=== PATIENT | male | born 1975 | race Two or more races ===

== ENCOUNTER → 2020-12-10 14:26 | Outpatient (CLI) | payer OTHER, SELFPAY ==
[2020-12-10 15:53] LABS: Absolute Lymphocyte Count 2.18 X10^3/uL (0.83-4.51); Absolute Neutrophil Count 3.4 X10^3/uL (2.0-7.7); Basophil# 0.02 X10^3/uL; Basophil% 0.3 % (0-1); Eosinophil# 0.12 X10^3/uL; Eosinophils% 1.9 % (0-5); Hematocrit 45.3 % (40-54); Hemoglobin 14.8 g/dL (13.0-16.5); Lymphocyte # 2.18 X10^3/ul (4.0); Lymphocyte % 35.2 % (19-41); Mean Corp Hgb Conc 32.7 g/dL (32-36); Mean Corpuscular Hgb 27.1 pg (27.0-32.0); Mean Corpuscular Volume 82.8 fL (80-94); Mean Platelet Vol. 10.1 fl (6.2-12.0); Monocyte# 0.46 X10^3/uL; Monocyte% 7.4 % (0-10); NRBC Flagged by Analyzer 0 % (0-5); Neutrophil # 3.39 X10^3/uL (2.7-7.7); Neutrophil % 54.9 % (47-70); Platelet Count 291 K/mm3 (150-450); RBC Distribution Width SD 39.1 fl (35.1-43.9); Red Blood Count 5.47 M/mm3 (4.6-6.2); White Blood Count 6.2 K/mm3 (4.4-11.0)
[2020-12-10 16:20] LABS: Vitamin B12 549 pg/mL (211-911); Vitamin D,25 Hydroxy 16.4 ng/mL
[2020-12-10 16:31] LABS: Hemoglobin A1c 5.8 % (3.8-5.6)
[2020-12-10 17:11] LABS: ALB/GLOB Ratio 1.1 RATIO (0.9-2.4); AST(SGOT) 27 U/L (15-37); Alanine Aminotransfer ALT/SGPT 49 U/L (16-61); Albumin, Serum 4.1 g/dL (3.2-5.0); Alkaline Phosphatase 78 U/L (45-117); Anion Gap 6 (5-15); BUN 12 mg/dL (7-18); BUN/Creat Ratio 13.3 RATIO (10-20); Chloride 104 mmol/L (98-107); Cholesterol 157 mg/dL (200); EST Glomerular Filtration Rate 97 mL/min (>60); Est Glom Filt Rate - Afr Amer 118 mL/min (>60); Ferritin 80 ng/mL (26-388); Free T3 2.8 pg/mL (2.18-3.98); Globulin 3.8 g/dL (2.2-4.2); Glucose 80 mg/dL (74-106); High Density Lipoprotein 37 mg/dL; Iron 88 ug/dL (65-175); Iron Binding Capacity,Total 357 ug/dL (250-450); PSA,Total - Annual Screen 0.31 ng/mL (0.00-4.00); Potassium 4.1 mmol/L (3.5-5.1); Protein, Total 7.9 g/dL (6.4-8.2); Sodium Level 139 mmol/L (136-145); T4 Free Direct 1.35 ng/dL (0.76-1.46); Thyroid Stim Hormone (TSH) 3.43 uIU/mL (0.358-3.74); Triglycerides 111 mg/dL; Very Low Density Lipoprotein 22 mg/dL (5-40)
[2020-12-15 20:07] LABS: Testosterone, Free 10.46 ng/dL (5.00-21.00)
[2020-12-15 20:38] LABS: Testosterone, % Free 2.32 % (1.50-4.20); Testosterone, Total 451 ng/dL (264-916)
== END ==
DX: D50.9 Iron deficiency anemia, unspecified (principal); R06.09 Other forms of dyspnea; R07.9 Chest pain, unspecified
CPT/HCPCS: 36415; 80053; 80061; 82306; 82607; 82728; 83036; 83540; 83550; 84153; 84402; 84403; 84439; 84443; 84481; 85025; G0103

== ENCOUNTER → 2020-12-12 11:06 | Outpatient (CLI) | payer OTHER, SELFPAY ==
--- NOTE | 2020-12-12 13:10 | EKG12_ITS ---
Test Reason : SOB Blood Pressure : / mmHG Vent. Rate : 100 BPM Atrial Rate : 100 BPM P-R Int : 162 ms QRS Dur : 128 ms QT Int : 350 ms P-R-T Axes : 067 069 -07 degrees QTc Int : 451 ms Poor data quality, interpretation may be adversely affected Normal sinus rhythm Right bundle branch block T wave abnormality, consider inferior ischemia Abnormal ECG Confirmed by MARITZA OWENS, SOWMYA ([id number]), brands editor ERICA MOHAN ([id number]) on 12/18/2020 12:21:40 PM Referred By: TAVON AMEZCUA Confirmed By:SOWMYA SALAS MD
--- NOTE | 2020-12-12 13:12 | STRESSREP ---
Stress Test Report Exercise myocardial perfusion stress test. 45-year-old man with a history of shortness of breath. Medications Nexium. Stress protocol: Resting EKG demonstrates normal sinus rhythm with a rate of 76 bpm. The patient exercised according to the regular Ector protocol for a total duration of 11 minutes the maximum heart rate attained was 193 bpm which was 109% of max impacted heart rate with a maximum workload of 13.3 metabolic equivalents. Patient completed 2 minutes into stage IV of the Ector protocol. At rest there were no ST or T wave changes noted to suggest ischemia at peak exercise upsloping ST changes only were noted with no meet the criteria for ischemia. No clinical angina was noted the test was terminated due to dyspnea. At approximately 1 minute and 50 seconds into recovery patient developed a right bundle branch block. This appeared to persist throughout the recovery. No symptoms were noted. The peak blood pressure was 172/58 mmHg which was normal response to exercise. Myocardial perfusion protocol. 11.3 mCi of technetium 99m sestamibi was injected at rest. The patient exercised according to regular Ector protocol for total duration of 11 minutes. At peak exercise 34.2 mCi of technetium 99m sestamibi was injected stress images were obtained stress and rest images were reconstructed and compared in the short axis vertical long horizontal long axis. Gated images were also obtained Perfusion SPECT analysis: Review of the stress images demonstrate normal uptake of tracer noted in all areas of the myocardium the resting images similarly demonstrate normal uptake of tracer noted in all areas of the myocardium. No areas of reversibility are noted to suggest ischemia. Normal uptake is noted in all areas. Gated SPECT analysis: The gated ejection fraction is 79%. Conclusion: Normal exercise myocardial perfusion stress test with no evidence of ischemia at a high workload. No clinical angina noted. Right bundle branch block noted during recovery.
== END ==
DX: R06.09 Other forms of dyspnea (principal); R07.9 Chest pain, unspecified; D50.9 Iron deficiency anemia, unspecified
CPT/HCPCS: 78452; 93005; 93017; 93306; A9500; A4216

== ENCOUNTER → 2020-12-13 15:00 | Outpatient (CLI) | payer OTHER, SELFPAY ==
--- NOTE | 2020-12-13 15:04 | CT_ITS ---
STUDY: CTA CHEST REASON FOR EXAM: Male, 45 years old. SOB on exertion x 4-5 months, no prior surgery, diabetes, hypertension. Remote hx superficial phlebitis 2 years ago. RADIATION DOSAGE (If Supplied By Facility): CTDIvol = ( 11.19 ) mGy, DLP = ( 355.61 ) mGycm TECHNIQUE: The examination was performed with the intravenous administration of IV 100mL Isovue-370. Post-processing of the angiographic images was performed, with multiplanar reformation and 3D reconstruction. Individualized dose optimization techniques were used for this CT. COMPARISON: None. FINDINGS: Small bilateral benign-appearing axillary lymph nodes. Normal enhancement of the main pulmonary artery and right and left pulmonary arteries. Normal enhancement of the bilateral peripheral pulmonary arteries. There is no demonstrated pulmonary embolism. Normal thoracic aorta and visualized great vessels. There is no demonstrated aortic dissection. Mild degree of the coronary calcification. Normal mediastinum. Normal hilar regions. Normal visualized trachea and bronchi. The lungs are well expanded. Normal pulmonary parenchyma. Normal pleura. Normal chest wall structures. Normal osseous structures. Normal visualized upper abdomen. CT/CTA Chest W/WO Contrast IMPRESSION: Mild degree of coronary artery calcification. Electronically Signed: Arie Oakley MD at 15:51 EST , Service support ,
== END ==
PROVIDERS: Referring Provider Internal Medicine Cardiovascular Disease; Visit Provider Internal Medicine Cardiovascular Disease
DX: R00.0 Tachycardia, unspecified (principal); R06.00 Dyspnea, unspecified
CPT/HCPCS: 71275; Q9967

== ENCOUNTER 2020-12-27 08:36 | Day surgery (SDC) | payer OTHER, SELFPAY ==
[2020-12-26 12:25] VITALS: BMI 25.1
--- NOTE | 2020-12-27 06:00 | HP_ITS ---
ADDENDUM by Dr. Andrew Mckeon MD on 12/26/20 at 0908 Addendum entered and electronically signed by Andrew Mckeon MD 12/26/20 09:08: Patient continues to have chest discomfort despite his stress test. He did experience chest discomfort this morning when he was walking his dog. At this juncture I would therefore suggest that because of the coronary calcium noted on his CT we perform a cardiac catheterization. The risk benefits and alternatives have been explained to him he understands and agrees to proceed. Assessment & Plan Problems 1. Dyspnea R06.00 Plan - Dr. Andrew Mckeon MD He does appear to have persistent dyspnea the etiology of which is not entirely clear at this particular time. He underwent a stress test during which he performed very well for 11 minutes without any evidence of ischemia. During recovery however he was noted to have right bundle branch block, which was asymptomatic. He apparently had a similar EKG abnormality on his previous stress test though he had exercised for 13 minutes. The concern is the reduction in the exercise capacity and the right bundle branch block and it may be helpful to obtain a CT scan to exclude any occult pulmonary pathology and/or pulmonary embolism. I have discussed the above with him and he understands and agrees to proceed. Depending on the results of the above further recommendations will be made. Plan Detail Additional Comments - Dr. Andrew Mckeon MD This is a telehealth visit in lieu of in person visit due to nationwide COVID ? 19 emergency. Verbal consent was obtained from the patient prior to initiation of this visit. Live video connection/telephone call between my location and the patient?s location was used for this visit. Patients name and date of were confirmed verbally. I spent a total of 30 minutes of time during this real-time, interactive virtual clinical encounter, which was conducted using telephone/live video technology. Greater than 50% of the time was devoted to counseling and coordinating care including the review of records, pertinent lab data and studies, discussing diagnostic evaluation and work up, planned therapeutic interventions and future disposition of care. All questions from patient were answered. Follow Up prn 12/26/20 0909 <Electronically signed by Andrew Ocasio> Date _ Andrew Mckeon MD cc: ~* Signed HPI HPI History of Present Illness Details: Pleasant 45-year-old man with history of gastroesophageal reflux who presents with dyspnea on exertion. Patient was seen yesterday as well as today with a televideo conferencing visit. He has also had occasional chest discomfort. He has had no dizziness or diaphoresis no near syncope or syncope. He did undergo evaluation and did help with her bone marrow transplant on his brother a few years ago. His iron levels as well as his hemoglobin has since normalized. He continues to complain of this dyspnea on exertion and it resulted in a stress test where he exercised 11 minutes without any EKG changes. He did get short of breath necessitating discontinuation of the test. An echocardiogram performed demonstrated preserved left ventricular systolic function. He also had other blood work which revealed a normal hemoglobin and a total cholesterol 157, LDL of 98 and HDL of 37. TSH was noted to be normal. His physical exam was otherwise unremarkable. His EKG at baseline demonstrates normal sinus rhythm with an RSR prime in V1. Intake Vital Signs 12/13/20 BP 100/76 12/13/20 Respiration 16 12/13/20 Pulse 76 Intake Visit Reasons: tachy Allergies No Known Allergies Allergy (Unverified 12/13/20 08:52) Medications esomeprazole magnesium 40 mg capsule,delayed release 40 mg PO DAILY 12/13/20 [History Confirmed 12/13/20] Ejection fraction %: 60 to 64 [facility] Medical History GERD (gastroesophageal reflux disease) (Chronic) Social History (Updated 12/13/20 @ 09:[address] Andrew Mckeon MD) Smoking Status: Never smoker ROS Const Const: Negative for fatigue, weakness, headache(s), frequent falls, difficulty sleeping or excessive sweating Eyes Eyes: Negative for loss of peripheral vision, transient loss of vision, blurry vision, double vision or tunnel vision ENT ENT: Negative for headache(s), dizziness, Nosebleed/epistaxis or balance problems Cardio Chest Pain: No Palpitations: No Edema: None Muscle aches with walking: None Resp Respiratory: Positive for SOB with activity; negative for SOB at rest, SOB orthopnea\SOB lying down, Cough or paroxysmal nocturnal dyspnea GI GI: Negative nausea, vomiting, heartburn or black,tarry stools : Negative for hematuria Musc Musc: Negative for muscle aches/ myalgia, muscle weakness, joint pain or balance problems Skin Skin: Negative non-healing lesions, rash or unusual bruising Neuro Neuro: Negative for dizziness, lightheadedness, near syncope, syncope, orthostatic symptoms, frequent falls, headache(s), weakness, blurry vision, double vision or lack of coordination Malachi Hematologic/Lymphatic: Negative for easy bleeding or easy bruising Endo Endo: Negative for fatigue, excessive sweating or increased thirst/drinking Psych Psych: Negative for anxiety or depression Allergy Allergy/Immunology: Negative for hives, Negative for rash Cardiology Exam Const Appearance: cooperative, healthy appearing, no acute distress, well developed and well groomed Nutritional Appearance: average body habitus and well nourished Orientation: alert, awake and oriented x3 Head Head: normal to inspection, normocephalic and atraumatic Ears: hearing grossly normal bilaterally and external ears normal Nose: external nose normal, nares normal, nasal mucous membranes and turbinates normal, septum normal, no nasal discharge Face and Sinus: face symmetric Mouth: oral mucosae normal, tongue normal, oropharynx normal and moist mucous membranes Teeth and gingiva: dentition normal Throat: posterior oropharynx normal, tonsils normal and uvula midline Eyes General: appearance normal, both eyes and all related structures Eyelids: eyelids normal Conjunctivae: conjunctivae normal Pupils: PERRL, normal by confrontation and accommodation normal EOM: EOM intact bilaterally Neck Neck: normal visual inspection, trachea midline and no JVD JVD: +5 Carotids: normal carotid upstroke and bounding pulses Chest Chest inspection: normal inspection of the chest, symmetric chest movement and normal respiratory effort Auscultation: Bilateral: Clear to Auscultation Cardio Palpation: normal PMI Rate: regular rate Rhythm: regular rhythm Heart sounds: S1 normal, S2 normal and normal, physiologic split S2; negative rub, gallop or murmur GI GI: normal to inspection, soft, no hepatosplenomegaly and bowel sounds present Neuro General: alert, awake, oriented x3, gait normal, moves all extremities and no focal sensory deficit Skin Skin: no rashes or lesions noted Extremities Pulses: Normal: Right Femoral Pulse, Left Femoral Pulse, Right Dorsalis Pedis Pulse, Left Dorsalis Pedis Pulse, Right Posterior Tibial Pulse, Left Posterior Tibial Pulse, Right Radial Pulse, Left Radial Pulse Lower Extremity Edema: None: Bilateral Musculoskel Musculoskeletal: No joint tenderness Psych Psychological: normal affect Assessment & Plan Problems 1. Dyspnea R06.00 Plan He does appear to have persistent dyspnea the etiology of which is not entirely clear at this particular time. He underwent a stress test during which he performed very well for 11 minutes without any evidence of ischemia. During recovery however he was noted to have right bundle branch block, which was asymptomatic. He apparently had a similar EKG abnormality on his previous stress test though he had exercised for 13 minutes. The concern is the reduction in the exercise capacity and the right bundle branch block and it may be helpful to obtain a CT scan to exclude any occult pulmonary pathology and/or pulmonary embolism. I have discussed the above with him and he understands and agrees to proceed. Depending on the results of the above further recommendations will be made. Plan Detail Additional Comments This is a telehealth visit in lieu of in person visit due to nationwide COVID ? 19 emergency. Verbal consent was obtained from the patient prior to initiation of this visit. Live video connection/telephone call between my location and the patient?s location was used for this visit. Patients name and date of were confirmed verbally. I spent a total of 30 minutes of time during this real-time, interactive virtual clinical encounter, which was conducted using telephone/live video technology. Greater than 50% of the time was devoted to counseling and coordinating care including the review of records, pertinent lab data and studies, discussing diagnostic evaluation and work up, planned therapeutic interventions and future disposition of care. All questions from patient were answered. Follow Up prn Coding Level of Care Code Attention Associate Pastor Diagnoses Dyspnea R06.00 Time Spent (min) 30 Comment 74343 Coding Level of Care Code Attention Katherine Diagnoses Dyspnea R06.00 Time Spent (min) 30 Comment 23411 Supplemental Info Supplemental Information Labs LDL Cholesterol 98 mg/dL (0-130) 12/10/20 HDL Cholesterol 37 mg/dL (40-) L 12/10/20 Triglycerides 111 mg/dL (-199) 12/10/20 VLDL Cholesterol 22 mg/dL (5-40) 12/10/20 Diagnostics Stress Test Nuclear Medicine 12/12/20 Stress Test 12/12/20
--- NOTE | 2020-12-27 10:47 | PRO.PCM_ITS ---
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 Evaluated by nuclear stress test which showed preserved LV function with no evidence of myocardial ischemia. Subsequently had a CT chest which showed calcified LAD. On the electrocardiogram he had on recovery of the stress test right bundle branch block which was stable clinically. No good good Indication: Symptoms of shortness of breath and chest pain with CT chest showing mild calcification of proximal LAD Heart failure: LV function is preserved no clinical evidence of CHF Stress/imaging: Patient exercised according to standard Ector protocol walked for [address]?T abnormalities and normal nuclear stress test findings with preserved LV function CAD presentation: Symptoms of shortness of breath and chest pain Summary: Patient had nonobstructive CAD involving the mid LAD with minor calcification in the proximal LAD Procedure Details The risks, benefits, complications, treatment options, and expected outcomes were discussed with the patient. The patient and/or family concurred with the proposed plan, giving informed consent. Patient was brought to the field laboratory operator after IV hydration . Patient was further sedated with IV conscious sedation. Subject was prepped and draped in the usual manner. Using the modified Seldinger access technique, a 6 Wolof sheath was placed in the []. Standard diagnostic catheters were used. Exchanges were performed over J-wire. At the end of the procedures, all catheters and sheaths were removed and bleeding was stopped with closure device using TR band Findings: Left ventriculogram: Was not performed Moderate Sedation: No sedation, local anesthesia using lidocaine used to the right radial artery Hemodynamics: Dominance: RCA LVEDP : Not done Ejection Fraction : Normal by echocardiogram and nuclear stress test Coronary Anatomy: Left Main : Large vessel, normal angiographically, bifurcating into LAD and the left circumflex LAD : Proximal LAD has mild calcification, mid LAD after the first septal branch has 30% stenosis, nonobstructive CAD, rest of the LAD large vessel reaching all the way to the apex and normal angiographically, with abundant septal branches Diagonals : Ist diagonal normal angiographically Circumflex : Large vessel, OM1 is normal and the proximal, mid and distal left circumflex normal angiographically Major Obtuse Marginals : Normal angiographically Right Coronary Artery : Dominant large vessel, proximal RCA has 20% stenosis, bifurcating into posterolateral and RPDA Estimated Blood Loss: Minimal less than 5 mils Complications: None Disposition condition: Stable Conclusion and plan; Angiographic findings discussed and plan is medical therapy with statin and low- dose aspirin. Yudith Harrison MD,FACC,[facility] make up operator helper
== END 2020-12-27 11:25 | disposition home or self-care (01) ==
LOC: CLSP 08:37
PROVIDERS: Visit Provider Internal Medicine Interventional Cardiology
DX: I25.10 Atherosclerotic heart disease of native coronary artery without angina pectoris (principal); I45.10 Unspecified right bundle-branch block; K21.9 Gastro-esophageal reflux disease without esophagitis
CPT/HCPCS: 93454; J7040; Q9967; C1769; C1894

== ENCOUNTER 2021-11-26 10:49 | Outpatient (CLI) | payer OTHER, SELFPAY ==
--- NOTE | 2021-11-26 10:53 | MRI_ITS ---
STUDY: MRI BRAIN WITH AND WITHOUT CONTRAST (ATTENTION INTERNAL AUDITORY CANALS - I.A.C.''s) REASON FOR EXAM: Male, 46 years old. TINNITUS RT EAR TECHNIQUE: Standardized multiplanar fat and water weighted pulse sequences were obtained. 17ML IV DOTAREM was administered for the contrast portion of the examination. COMPARISON: None. FINDINGS: Normal bilateral temporal bones. Normal bilateral internal auditory canals. There is no demonstrated intracanalicular or cisternal vestibular schwannoma (acoustic neuroma). There is no enhancement of the bilateral VIIth or VIIIth cranial nerves. Normal bilateral cochlea, vestibules and semicircular canals. Normal size of the ventricles and extra-axial spaces for the patient''s age. Normal white matter tracts of the supratentorial brain. Normal bilateral basal ganglia. Normal thalami. Normal flow voids within the major intracranial circulation suggesting patency by spin echo criteria. Normal venous enhancement. There is no enhancing intra-axial or extra-axial abnormality. There is no extra-axial fluid accumulation. Normal sella turcica, pituitary gland, infundibular stalk, optic chiasm and hypothalamus. Normal tectal plate and pineal gland. MRI/Brain W/WO Contrast IMPRESSION: Unremarkable unenhanced and enhanced MRI of the bilateral internal auditory canals (I.A.C''s). Electronically Signed: Neena Christianson MD at 11:23 EST Tel , Service support ,
== END 2021-11-26 23:59 | disposition short-term general hospital (02) ==
LOC: MRI 10:50
PROVIDERS: Referring Provider Otolaryngology; Visit Provider Otolaryngology
DX: H93.11 Tinnitus, right ear (principal)
CPT/HCPCS: 70553; A9575

== ENCOUNTER 2021-11-26 12:35 | Outpatient (CLI) | payer OTHER, SELFPAY ==
[2021-11-26 14:25] LABS: Hematocrit 45.2 % (40-54); Hemoglobin 14.5 g/dL (13.0-16.5); Mean Corp Hgb Conc 32.1 g/dL (32-36); Mean Corpuscular Hgb 27.2 pg (27.0-32.0); Mean Corpuscular Volume 84.8 fL (80-94); Mean Platelet Vol. 10.1 fl (6.2-12.0); Platelet Count 265 K/mm3 (150-450); RBC Distribution Width CV 13.8 % (11.6-14.6); RBC Distribution Width SD 42.5 fl (35.1-43.9); Red Blood Count 5.33 M/mm3 (4.6-6.2); White Blood Count 6.4 K/mm3 (4.4-11.0)
[2021-11-26 15:00] LABS: ALB/GLOB Ratio 1.1 RATIO (0.9-2.4); AST(SGOT) 18 U/L (15-37); Alanine Aminotransfer ALT/SGPT 32 U/L (16-61); Alkaline Phosphatase 70 U/L (45-117); Anion Gap 6 (5-15); BUN 15 mg/dL (7-18); BUN/Creat Ratio 18.3 RATIO (10-20); Calcium,Total 9.7 mg/dL (8.5-10.1); Chloride 104 mmol/L (98-107); Creatinine, Serum 0.82 mg/dL (0.70-1.30); EST Glomerular Filtration Rate 108 mL/min (>60); Est Glom Filt Rate - Afr Amer 131 mL/min (>60); Globulin 3.5 g/dL (2.2-4.2); Glucose 84 mg/dL (74-106); Magnesium 2.3 mg/dL (1.6-2.6); Potassium 4.2 mmol/L (3.5-5.1); Protein, Total 7.5 g/dL (6.4-8.2); Sodium Level 140 mmol/L (136-145); T4 Total, Thyroxin 8.8 ug/dL (4.5-12.1)
[2021-11-26 15:01] LABS: T3 Total - Triiodothyronine 0.98 ng/mL (0.6-1.81)
[2021-11-26 15:12] LABS: Anion Gap 7 (5-15); BUN 15 mg/dL (7-18); BUN/Creat Ratio 17.8 RATIO (10-20); Calcium,Total 9.7 mg/dL (8.5-10.1); Chloride 106 mmol/L (98-107); Creatinine, Serum 0.84 mg/dL (0.70-1.30); EST Glomerular Filtration Rate 105 mL/min (>60); Est Glom Filt Rate - Afr Amer 127 mL/min (>60); Glucose 83 mg/dL (74-106); Potassium 4.3 mmol/L (3.5-5.1); Sodium Level 142 mmol/L (136-145); Thyroid Stim Hormone (TSH) 2.68 uIU/mL (0.358-3.74)
== END 2021-11-26 23:59 | disposition short-term general hospital (02) ==
LOC: LAB 12:37
PROVIDERS: Internal Medicine Cardiovascular Disease; Visit Provider Anesthesiology
DX: H93.11 Tinnitus, right ear (principal)
CPT/HCPCS: 36415; 80048; 80053; 83735; 84436; 84443; 84480; 85027

== ENCOUNTER 2021-11-29 06:45 | Day surgery (SDC) | payer OTHER, SELFPAY ==
--- NOTE | 2021-11-26 10:52 | EKG12_ITS ---
Test Reason : PREOP Blood Pressure : / mmHG Vent. Rate : 076 BPM Atrial Rate : 076 BPM P-R Int : 150 ms QRS Dur : 094 ms QT Int : 372 ms P-R-T Axes : 070 061 022 degrees QTc Int : 418 ms Normal sinus rhythm Normal ECG Confirmed by MARITZA OWENS, SOWMYA ([id number]), supervising film or videotape editor JOYCE KAPADIA ([id number]) on 11/29/2021 10:23:08 AM Referred By: Vladimir Hassan Confirmed By:SOWMYA SALAS MD
[2021-11-29 07:13] VITALS: BP 115/69; PULSE 71; RESP 16; TEMP 36.2; O2SAT 99; BMI 25.1
[2021-11-29] MEDS: Lactated Ringers 1,000 ML 15 ML IV (07:17)
--- NOTE | 2021-11-29 08:00 | SEP_PTH ---
PATIENT: DECLAN AMEZCUA LOC: [facility] U#:[id number] AGE/SX: 46/M ROOM: RE11/29/[address]: Dr. Vladimir Hassan MD : [id number] BED: DIS: 11/29/2021 SPEC #: [id number] RECD: 11/29/21 11:48 STATUS: LIANA REQ #: [id number] LETTY: 11/29/21 08:[address]: Vladimir Hassan DEPT: SURGICAL PATHOLOGY RECD BY: Priya Daniels ENTERED: 11/29/21 12:45 SP TYPE: SEPTUM OTHR DR: No Primary Care Phys Tissues: Nasal septum, NOS Procedures: Decalcification bone/plaque Surgery Specimen Level III HEADER OPERATION: Septoplasty PRE-OP DIAGNOSIS: Deviated nasal septum TISSUE SUBMITTED: Nasal septum contents MICROSCOPIC DIAGNOSIS Nasal septum contents: Fragments of bone and cartilage, clinically deviated nasal septum. SJ:ade 12/04/2021 MICROSCOPIC DESCRIPTION Slides are reviewed. GROSS DESCRIPTION Received in fixative is one container labeled with the patient's name and designated nasal septum contents. The specimen consists of multiple irregular fragments of bone and cartilage that in aggregate measure 4 x 3 x 0.3 cm. The entire specimen is submitted in two cassettes after decalcification. / SJ:ade 11/29/2021 TC:5 CPT: 05343, 35106
[2021-11-29] MEDS: Lidocaine 1% /Epi 1:100 (50ml) 50 ML VIAL (08:30)
[2021-11-29] MEDS: Lidocaine 4% 50 ML Bottle (08:30)
[2021-11-29] MEDS: Oxymetazoline 0.05% 1 SPRAY SPRAY.BTL 15 SPRAY (08:30)
[2021-11-29] MEDS: Bacitracin 500 UNITS/GM PACKET (08:59)
--- NOTE | 2021-11-29 09:02 | PCM.OPRPT ---
Problems Associated Problem List Diagnoses (1) Deviated nasal septum: Report of Operation Date of Procedure: 11/29/21 Pre-Operative Diagnosis: Deviated nasal septum Post-Operative Diagnosis: Same Surgery/Procedure Performed:: Septoplasty Description of Surgical Findings:: Noel is a 46-year-old male with persistent bothersome nasal obstruction failing response to appropriate medical therapy. Examination did show significant deviation of nasal septum particular obstructing the left side and the above procedures offered in hopes of alleviation of these complaints. The risks, alternatives, potential complications, and benefits were discussed at length and any questions answered to the patient and/or caregiver's satisfaction. Witnessed informed consent was obtained in the office, and the patient and/or caregiver was agreeable to proceed. Procedure went as follows: The patient was identified in the preoperative holding and brought to the operating room, was placed under general anesthesia and intubated. When appropriate anesthesia was obtained, pledgets soaked in a 50-50 mixture of oxymetazoline and 4% topical lidocaine were placed to decongest the nasal mucosa. The nasal septum was then injected beginning on the left side with 1% lidocaine with 100,000 epinephrine for a total of 5 mL. The pledgets were then removed and the left nasal cavity examined. There was noted to be significant nasal septal deviation to the left. Using a 15 blade scalpel, a hemitransfixion incision was then made on the left side and using the [place] elevator a subperichondrial/periosteal flap was elevated. The septum was then transected at the bony cartilaginous junction and a similar flap raised on the contralateral side. Using a Masoud forceps, the septum was then sharply transected superiorly and the deviated portions removed with a Feliciano forceps. Any inferior bony spur was then removed with a chisel allowing for midline placement of the nasal septum. Anteriorly, the bowing of the septum to the left was relieved by resecting a 1 mm section along the inferior aspect of the nasal cartilage and repositioning the base along the right side of the nasal spine which alleviated the left-sided obstruction but maintained nasal tip support. The hemitransfixion incision was then closed with interrupted 4-0 chromic gut suture followed by a 4-0 plain quilting suture to reapproximate the mucosal flaps. Catalan splints coated with Bacitracin ointment were then applied to each nasal cavity and secured at the columella with a single 3-0 Prolene suture. An NG tube was then placed to decompress the stomach and the patient returned to anesthesia, revived and extubated having tolerated the procedure well. Surgeon: Vladimir Hassan Type of Anesthesia: General Anesthesiologist: Nikita Mercer Special Medications: none Specimen's removed: nasal septal contents Drains: none Estimated Blood Loss (mL): 25 mL Fluids Replaced: 700 mL Grafts/Implants Used: Catalan splints Complications none Admit VTE Documentation VTE Present on Admission: No VTE Mechan Device Prophylaxis: SCD's VTE Pharm Prophylaxis ordered?: No
--- NOTE | 2021-11-29 09:08 | PCM.DC ---
Discharge Instructions Diet Discharge Diet: No restrictions Activity Discharge Activity: Return to Normal Activity Weight Bearing Status: Weight bearing as tolerated Dressing / Incision Call your doctor if your incision/area has: Sudden Increased Bleeding and Foul Smelling Discharge Call your doctor if you observe: Fever of 101 or Higher and Uncontrolled pain Follow Up Care Please Follow Up With: Vladimir Hassan MD When: 5 days Test Results: Test results from this visit will be discussed in further detail at your follow-up appointment, if applicable. Discharge Plan Admission Primary Reason for Your Visit: deviated nasal septum Attending Provider: Vladimir Hassan Primary Care Provider: Care Physician,Charmaine Primary Discharge Orders/Prescriptions Prescriptions: New acetaminophen 500 mg Tablet 500 mg PO Q4H PRN PRN (Reason: Pain Score 1-5/10) Qty: 0 RF: 0 hydrocodone-acetaminophen 5-325 mg Tablet 1 tab PO Q6H PRN PRN (Reason: Pain Score 6-10) 5 Days Qty: 10 RF: 0 ibuprofen 200 mg Tablet 400 mg PO Q6H PRN PRN (Reason: Pain Score 4-10) Qty: 0 RF: 0 Continued esomeprazole magnesium [Nexium] 40 mg capsule,delayed release(DR/EC) 40 mg PO DAILY RF: 0 levothyroxine 50 mcg Tablet 50 mcg PO DAILY RF: 0 fexofenadine 60 mg Capsule 120 mg PO DAILY RF: 0 rosuvastatin 10 mg tablet 10 mg PO DAILY Qty: 90 RF: 3 Other Ambulatory Orders: 12 Lead EKG (Routine) Timeframe: [id number] Location: None Selected Ordered By: Dr. Vladimir Bazan Referrals / Follow Up: Care Physician,No Primary [Primary Care Provider] - Disposition Disposition (needs filled in before D/C Order can be placed): Home, Self Care
[2021-11-29 09:15] VITALS: BP 105/75; BP 115/69; PULSE 84; RESP 18; TEMP 36.1; O2SAT 98
[2021-11-29 09:30] VITALS: BP 115/69; BP 115/85; PULSE 76; RESP 16; O2SAT 100
[2021-11-29 09:45] VITALS: BP 115/69; BP 116/83; PULSE 71; RESP 16; O2SAT 100
[2021-11-29 09:59] VITALS: BP 115/69; BP 117/85; PULSE 69; RESP 16; TEMP 36.4; O2SAT 100
[2021-11-29 10:16] VITALS: BP 115/69
== END 2021-11-29 23:59 | disposition home or self-care (01) ==
LOC: SDC 06:46 → AC 06:47
PROVIDERS: Referring Provider Otolaryngology; Visit Provider Otolaryngology
PROC: (CPT 30520; principal; 2021-11-29 07:45)
DX: J34.2 Deviated nasal septum (principal)
CPT/HCPCS: 30520; 00160; 88304; 88311; 93005; J7120; J2405

== ENCOUNTER → 2022-06-30 | Outpatient (CLI) | payer OTHER, SELFPAY ==
--- NOTE | 2022-06-30 13:40 | MRI_ITS ---
STUDY: MRI LEFT KNEE REASON FOR EXAM: Posterior left knee pain for 10 days, left knee injury. TECHNIQUE: Standardized fat and water weighted pulse sequences were obtained in all 3 orthogonal planes. COMPARISON: Radiographs 06/19/2022. FINDINGS: Normal medial meniscus. Normal hyaline cartilage of the medial femorotibial compartment. Normal medial femoral condyle and tibial plateau. Normal medial collateral ligamentous complex (MCL). Normal distal semimembranosus, gracilis and semitendinosus tendons. Normal lateral meniscus. Normal hyaline cartilage of the lateral femorotibial compartment. Normal lateral femoral condyle and tibial plateau. Normal proximal tibiofibular articulation. Normal lateral collateral (fibular) ligament. Normal popliteus tendon. Normal biceps femoris tendon. There is mild interstitial edema in the anterior cruciate ligament (T2 sagittal image 15; T2 axial images 19-21) suggestive of a low-grade sprain. Normal posterior cruciate ligament (PCL). Normal congruent patellofemoral articulation. There is low-grade chondromalacia patellae (T2 axial image 13). Normal medial and lateral patellar retinaculum. Normal visualized quadriceps tendon. Normal patellar tendon. Normal Hoffa''s fat pad. There is a small joint effusion. The soft tissues are unremarkable. The otherwise visualized osseous structures are unremarkable. MRI/Lower Ext Joint Only (Routine) IMPRESSION: Mild interstitial edema in the anterior cruciate ligament, suggestive of a low-grade sprain. Low-grade chondromalacia patellae. Small joint effusion. No demonstrated meniscal tear. Electronically Signed: Víctor Estrada MD at 14:42 EDT ,
== END | disposition home or self-care (01) ==
LOC: MRI 13:26
PROVIDERS: Visit Provider Orthopaedic Surgery Sports Medicine
DX: M23.304 Other meniscus derangements, unspecified medial meniscus, left knee (principal); X58.XXXA Exposure to other specified factors, initial encounter; M22.42 Chondromalacia patellae, left knee; M25.462 Effusion, left knee
CPT/HCPCS: 73721

== ENCOUNTER 2022-07-16 13:30 | Outpatient (RCR) | payer OTHER, SELFPAY ==
--- NOTE | 2022-07-09 10:20 | HP.PTEVAL ---
Patient's Visit Information DECLAN AMEZCUA is a 46 year old M referred to Physical Therapy by Dr. Cheikh Spicer MD with a diagnosis of L knee pain, Bipartite patella and derangement of medial meniscus of L knee. Date of Evaluation: 07/01/22 Physical Therapist: Warren Gaston DPT - Visit Plan Frequency: 1x/Week Duration: 4 Weeks Plan: Start with quad strengthening, glute max/med strengthening. Focus on stability progressing back to recreational activities as tolerated. Pt. to continue to ice and use brace as needed. Pt. given exercises today. - Subjective Pt. is here today for his initial evaluation with diagnosis of L knee pain, Bipartite patella and derangement of medial meniscus of L knee. Pt. reports having knee pain for a few weeks now after playing cricket on the weekend. He reports playing ~2 times per week without issues. He did not have a specific event, but the next day way pretty sore and noticed some increased edema. He has refrained from playing and has been icing with + results. He is also wearing a compression sleeve as well. 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 He has been feeling a little bit better and is hopeful to get back to playing cricket in a few weeks. He reports increased pain with standing for longer periods of time, stairs and stiffness with changes in positions. No N/T in either LE. Pt. reports pain at medial aspect of L knee and slight lateral pain as well. He did have an MRI showing: Mild interstitial edema in the anterior cruciate ligament, suggestive of a. low-grade sprain, Low-grade chondromalacia patellae, Small joint effusion, No demonstrated meniscal tear. - Pain L knee Pain Intensity (Out of 10): 2 Pain Intensity Range: 0, 4 Comment: medial aspect - Objective POSTURE: Pt. has normal posture in stance, he has no lateral wt. shifting, normal knee positioning as well. PALPATION: Pt. has mild medial joint effusion, no pain with palpation of medial joint line, patellar tendon, no pain at MCL region or popliteal fossa. NEURO: Pt. has normal DTR of BLEs. Normal sensation to light touch. ROM: R knee: 0-0-138deg. L knee 0-0-125deg but has tenderness at end range flexion and extension positions. Normal HS length. MMT: RLE 5/5 throughout ankle and knee; 4+/5 R hip throughout. LLE: ankle 5/5 throughout; knee: ext 5-/5, flexion 5-/5 NE with either motion; hip: flexion 5/5, abd 4+/5, ext 4+/5. Core strength- fair. GAIT: pt. has normal gait pattern, no chip drop, normal knee positioning. No reports of increased pain. STAIRS: normal pattern no pain. squat mechanics: slight wt. shit to R side with increased depth. - Special Tests L Knee Mikey - Meniscus: Negative L Knee Disco Test - Meniscus: Negative L Knee Nico - ACL: Negative L Knee Anterior Drawer - ACL: Negative L Knee Valgus - MCL: Negative L Knee Varus - LCL: Negative Comments: Pt. had slight soreness with anterior drawer, but no laxity - Balance/Special Test Scores Lower Extremity Functional Score: 74 - Goals Goal 1:: LTG: Pt. to be I with HEP. Goal Time Frame: 2-4 Weeks Goal 2:: STG: Pt. to complete all work related activities and ADLs without increase in L knee pain. Goal Time Frame: 2 Weeks Goal 3:: LTG: Pt. to have 5/5 strength throughout LLE musculature. Goal Time Frame: 4-6 Weeks Goal 4:: LTG: Pt. to be able to run for short distances without increase - Rehabilitation Potential Physical Therapy Diagnosis: Pt. has signs and symptoms consistent with L knee pain, Bipartite patella and derangement of medial meniscus of L knee. He had an MRI showing ACL sprain. He is overall doing better. I talked to him about stabilizing around his knee to reduce stress to his ACL with his activities and slowly progressing back into his activities as tolerated. I gave him some hip stability and quad strengthening exercises to assist with this. Rehabilitation Potential: Excellent - Anticipated Interventions Patient/Client Instruction: Educate patient on: Condition, Plan of Care, Risk Factors, Benefits of Fitness Program For the Purpose of:: To foster healthy habits, To improve decision making, To facilitate caregiver knowledge, To improve self management, To prevent re-injury, To improve ability to perform tasks related to life management Therapeutic Exercise to Include: Strength training, Power training, Endurance training, Balance training, Coordination, Active ROM, Dynamic Lumbar Stabilization For the Purpose of:: To decrease pain, To decrease swelling/inflammation, To increase ROM, To improve nutrient delivery to tissue, To increase oxygenation perfusion, To improve muscle performance and motor function, To improve health of tissue, To decrease soft tissue restriction Thank you for the opportunity to evaluate your patient. For Medicare and Medicare HMO plans, please review the plan of care and approve it. It will need to be FAXED BACK to us at [phone] for Medicare purposes. For Medicare only, by signing this I certify the plan of care. Please let me know if there are questions or concerns regarding this plan of care. Physician Signature: Date:
== END 2022-07-16 19:00 | disposition home or self-care (01) ==
LOC: PT 13:30
PROVIDERS: Referring Provider Orthopaedic Surgery Sports Medicine; Visit Provider Orthopaedic Surgery Sports Medicine
DX: M23.304 Other meniscus derangements, unspecified medial meniscus, left knee (principal); M25.562 Pain in left knee; Q74.1 Congenital malformation of knee
CPT/HCPCS: 97110; 97161

== ENCOUNTER → 2022-09-08 | Outpatient (CLI) | payer OTHER, SELFPAY | END | disposition home or self-care (01) | LOC: SL 20:20 | PROVIDERS: Visit Provider Internal Medicine Cardiovascular Disease | DX: G47.10 Hypersomnia, unspecified (principal); R06.00 Dyspnea, unspecified; R00.0 Tachycardia, unspecified; R06.83 Snoring | CPT/HCPCS: 95810 ==

== ENCOUNTER 2022-10-24 23:15 | Emergency (ER) | payer OTHER, SELFPAY ==
[2022-10-24 23:16] VITALS: BP 113/76; PULSE 68; RESP 15; TEMP 36.3; O2SAT 98; BMI 24.9
[2022-10-25 00:13] VITALS: BP 110/68; O2SAT 96
--- NOTE | 2022-10-25 00:13 | EDS_ITS ---
HPI History of Present Illness Chief Complaint: Other, Pain/Inj Informant: patient Narrative Narrative: Patient is a 47-year-old male presenting with left jaw malocclusion. Patient is a 3 episodes over the past week where he feels that the left side of his jaw/TMJ pops out. Prior episodes he was able to move his mouth around and get it to feel like it lined back up again however this time he was not. He was concerned that he might have a dislocation so he came to emergency room further evaluation. Denies significant pain. Does not grind his teeth but sometimes does clench his teeth and has started a new workout regimen. Each time a tap in his head has been leaned to the side he is been playing with a pet. Patient Nuys any trauma to the mouth. Couple months ago notes that he did have some wisdom teeth pulled. Denies any difficulty swallowing or speaking. Is able to open and close his mouth however he does feel that his jaw is not aligned. No other complaints at this time. [facility] Medical History Bipartite patella Cardiology follow-up encounter Chondromalacia patellae, left knee Cubital tunnel syndrome on right Derangement of medial meniscus of left knee Effusion, left knee Gastric reflux GERD (gastroesophageal reflux disease) High cholesterol History of stress test Hyperlipidemia Hypothyroidism Non-smoker Sprain of anterior cruciate ligament of left knee Thyroid disease Wears glasses Home Medications esomeprazole magnesium 40 mg capsule,delayed release (Nexium) 40 mg PO DAILY 12/13/20 [History Last Taken 11/29/21 04:45] rosuvastatin 10 mg tablet 10 mg PO DAILY #90 tabs 12/27/20 [Rx Last Taken Unknown] levothyroxine 50 mcg tablet 50 mcg PO DAILY 11/18/21 [History Last Taken 11/29/21 04:45] fexofenadine 60 mg capsule 120 mg PO DAILY 11/29/21 [History Last Taken 11/29/21 04:45] aspirin 81 mg tablet,delayed release (Adult Low Dose Aspirin) 81 mg PO DAILY 08/18/22 [History Last Taken Unknown] diazepam 5 mg tablet (Valium) 5 mg PO QHS PRN muscle spasm #5 tabs 10/25/22 [Rx Last Taken Unknown] Allergy/AdvReac Type Severity Reaction Status Date / Time No Known Allergies Allergy Verified 10/24/22 23:18 Surgical History History of bone marrow donation History of cardiac catheterization Social History Smoking Status: Never smoker ROS ROS ED Constitutional Constitutional ED: Denies chills or fever(s) Eyes Eyes: Denies change in vision ENT ENT ED: Reports other Details: Left jaw pain ; Denies rhinorrhea or sore throat Cardiovascular Cardiovascular: Denies chest pain or palpitations Respiratory/Chest Respiratory/Chest: Denies cough or dyspnea Gastrointestinal Gastrointestinal: Denies nausea or vomiting Integumentary Denies rash Neurologic Neurologic: Denies headache(s) EXAM Physical Exam Const Vital Signs: 10/24/22 23:16 10/24/22 23:18 10/25/22 00:13 Temperature 97.4 F L Temperature Source Oral Pulse Rate 68 Respiratory Rate 15 Respiratory Effort Normal Non-Labored Respiratory Pattern Normal Blood Pressure 113/76 110/68 Blood Pressure Mean 88 Pulse Ox 98 96 Oxygen Delivery Method Room Air Positive well nourished and well developed General Appearance ED: well developed and NAD HEENT Reports TM's clear and moist mucous membranes HEENT Narrative: Slight malocclusion however patient is able to fully open and close his mouth. There is some irregularity appreciated with hinge movement of the jaw over the left TMJ. No pinpoint tenderness. No associated erythema. No mastoid tenderness. Normal oropharynx. Negative for trauma Tympanic Membrane ED: Yes TM's clear Eyes PERRL and EOMs intact bilaterally Neck supple and no JVD Chest Wall inspection of chest normal and palpation of chest normal Resp normal respiratory effort and clear to auscultation bilaterally Cardio regular rate and regular rhythm GI non-distended Extremity normal to inspection Neuro oriented x3 Sensorium / Orientation: alert Motor Exam: Negative for general weakness Psych mental status grossly normal Skin no rashes or lesions noted MDM MDM MDM Narrative Medical decision making narrative: Patient evaluated for pain and concern of subluxation versus dislocation of his left TMJ. Patient does not have a dislocation based on clinical exam. He is able to fully open and close his mouth however I am concerned it could be subluxed given the sudden onset of symptoms and the subtle malocclusion. He is able to protrude his mandible without any difficulty. He is able to bite down on a popsicle hard enough for me to break it. The bite on the popsicle actually seems to improve his symptoms. He feels that his bite is more aligned however he is now having more pain at the TMJ joint. Patient is offered Motrin but states he will just take some when he gets home. He is given a prescription for short course of Valium as I suspect he has a subluxation and the relax of the jaw muscles should help this. He is given referral for oral surgery. Counseled return precautions. Patient verbalizes agreement understands plan. Discharged home in improved and stable condition. Discharge Plan Triage Chief Complaint: Other, Pain/Inj ED Provider: Angely Apple Dx/Rx/DC Orders Clinical Impression: Recurrent subluxation of left temporomandibular joint, TMJ arthralgia Instructions: TMD Self Care, ED TMJ Syndrome Prescriptions: New diazepam [Valium] 5 mg tablet 5 mg PO QHS PRN (Reason: muscle spasm) Qty: 5 0RF No Action esomeprazole magnesium [Nexium] 40 mg capsule,delayed release(DR/EC) 40 mg PO DAILY aspirin [Adult Low Dose Aspirin] 81 mg tablet,delayed release (DR/EC) 81 mg PO DAILY levothyroxine 50 mcg Tablet 50 mcg PO DAILY fexofenadine 60 mg Capsule 120 mg PO DAILY rosuvastatin 10 mg tablet 10 mg PO DAILY Qty: 90 3RF Primary Care Provider: Andrew Mckeon Referrals: Adriano Belle DDS [Med Staff - Active Staff] - 3-5 Days if not improving Care Physician,No Primary [Non-Staff] - Disposition Disposition: Home, Self Care Discharge Date/Time: 10/25/22 00:53
== END 2022-10-25 00:53 | disposition home or self-care (01) ==
PROVIDERS: Emergency Provider Emergency Medicine; PCP Internal Medicine Cardiovascular Disease; Visit Provider Emergency Medicine
DX: M26.629 Arthralgia of temporomandibular joint, unspecified side (principal); M26.4 Malocclusion, unspecified; E78.00 Pure hypercholesterolemia, unspecified; S03.02XA Dislocation of jaw, left side, initial encounter
CPT/HCPCS: 99282

== ENCOUNTER → 2023-05-07 | Outpatient (CLI) | payer OTHER, SELFPAY ==
--- NOTE | 2023-05-07 13:45 | RAD_ITS ---
STUDY: X-RAY - LEFT HAND REASON FOR EXAM: Male, 47 years old. TRAUMA TECHNIQUE: 3 view(s) of the hand. COMPARISON: None. FINDINGS: Normal radiocarpal articulation. Normal distal radioulnar joint. Normal visualized carpal bones. Normal carpal articulations Normal carpometacarpal articulation of the thumb. Normal second through fifth carpometacarpal joints. Normal metacarpi. Normal metacarpophalangeal joint of the thumb. Normal interphalangeal joint of the thumb. Normal proximal and distal phalanges of the thumb. Normal metacarpophalangeal joints of the second through fifth fingers. Normal proximal and distal interphalangeal joints of the second through fifth fingers. Nondisplaced oblique fracture at the base of the middle phalanx of the fifth digit. Soft tissue swelling. RAD/Hand Min 3 Views IMPRESSION: Nondisplaced oblique fracture at the base of the middle phalanx of the fifth digit. Electronically Signed: Arie Oakley MD at 15:15 EDT ,
== END | disposition home or self-care (01) ==
PROVIDERS: PCP Internal Medicine Cardiovascular Disease; Referring Provider Radiology Diagnostic Radiology; Visit Provider Radiology Diagnostic Radiology
DX: S62.657A Nondisplaced fracture of middle phalanx of left little finger, initial encounter for closed fracture (principal); X58.XXXA Exposure to other specified factors, initial encounter
CPT/HCPCS: 73130

== ENCOUNTER 2023-10-08 08:09 | Day surgery (SDC) | payer OTHER, SELFPAY ==
--- NOTE | 2023-10-08 08:15 | PCM.HP.BLA ---
History and Physical Date of Admission: 10/08/23 48 M who presents to the office today for *BGI established 09.14.23 reflux has been a difficulty historically; managed with 20mg esomeprazole. Notes some dysphagia lately with certain situations/foods. Reports EGD approximately 5 years prior with no acute issues. Dysphagia not dependent on reflux. Screening colonoscopy not yet performed; would like to wait. ROS Const Constitutional: No anorexia, fatigue, fever(s), weight change or sleep problems Eyes Eyes: No change in vision ENT ENT: No abnormal hearing, difficulty swallowing, mouth lesions, tongue swelling or throat swelling Resp Respiratory: No cough or shortness of breath Cardio Cardiology: No chest pain at rest, chest pain with exertion, shortness of breath or dyspnea on exertion Gastro GI: No difficulty swallowing Genitourinary Male: No difficulty urinating or burning urination Musc Musculoskeletal: No joint pain, joint swelling, muscle weakness or decreased muscle mass Skin Skin: No hair loss in leg, yellowing of the eye, itchy eyes, rash, skin ulcer or skin swelling Neuro Neurology: No abnormal hearing, abnormal movements, confusion, unsteady gait/balance or memory loss Psych Psychiatric: No anxiety, No confusion and No memory loss Endo Endocrine: No fatigue or weight change Aller/Imm Allergy/Immunologic: No itchy eyes, throat swelling or tongue swelling Malachi/Lymp Hematologic/Lymphatic: No easy bleeding, easy bruising or enlarged lymph nodes Exam Const General: cooperative and comfortable Nutritional Appearance: average body habitus and well nourished [facility] Head: normal to inspection Ears: hearing grossly normal bilaterally Nose: external nose normal Face and sinus: normal facial exam Mouth: oral mucosae normal Throat: posterior oropharynx normal Eyes General: appearance normal, both eyes and all related structures Neck Neck: normal visual inspection Chest Chest palpation & inspection: normal inspection of the chest and normal palpation of entire chest wall Resp Effort & Inspection: normal respiratory effort Auscultation: Bilateral: Clear to Auscultation Cardio Palpation: normal PMI Rate: regular rate Rhythm: regular rhythm GI Inspection: normal to inspection Auscultation: normal bowel sounds Percussion: normal to percussion Palpation: no hepatosplenomegaly Skin General: no rashes or lesions noted Neuro General: patient alert Extrem General: normal to inspection Psych Affect: normal affect Quality Reporting Tobacco Screening ([facility]) Smoking Status: Never smoker Assessment and Plan Assessment and Plan (1) GERD (gastroesophageal reflux disease): Status: Chronic Qualifiers: Esophagitis presence: without esophagitis Qualified Code(s): K21.9 - Gastro-esophageal reflux disease without esophagitis Plan: He has a long history of gastroesophageal reflux disease and been on PPI therapy for controlling of symptoms. He would like to get screened for Granados's esophagus as we evaluate his upper GI tract and see if there is any eosinophilic disease, acid base disease, bile base disease or combination of both. He may need a gastric emptying study in the future. It depends on what is found on upper endoscopy. He was explained alternatives, risk, benefits including understanding bleeding, infection, sepsis, perforation, need for emergent and . He will have an ASA of 2. I have examined the patient and the H&P has been reviewed. There are no clinical changes since date of exam.
[2023-10-08] MEDS: Lactated Ringers 1,000 ML 15 ML IV (08:30)
--- NOTE | 2023-10-08 08:30 | EGD_PTH ---
PATIENT: DECLAN AMEZCUA LOC: [facility] U#:[id number] AGE/SX: 48/M ROOM: RE10/08/[address]: Dr. Eric Caldera DO : 1975 BED: DIS: 10/08/2023 SPEC #: [id number] RECD: 10/08/23 11:51 STATUS: LIANA REAretha #: [id number] LETTY: 10/08/23 08:[address]: Eric Caldera DEPT: SURGICAL PATHOLOGY RECD BY: Brandie Lopez ENTERED: 10/08/23 11:51 SP TYPE: EGD BIOPSY ARACELIS DR: Dr. Andrew Mckeon MD Tissues: Esophageal mucous membrane Procedures: Special Stain Group II Surgery Specimen Level IV Alcian Blue/PAS (control) HEADER OPERATION: EGD PRE-OP DIAGNOSIS: GERD TISSUE SUBMITTED: Distal esophagus biopsy MICROSCOPIC DIAGNOSIS Distal esophagus, biopsy: Fragments of benign gastric mucosa with mild chronic inflammation. No evidence of goblet cell metaplasia. See comment. AM:ade 10/09/2023 COMMENT Alcian blue/PAS stain with matched control supports the above diagnosis. MICROSCOPIC DESCRIPTION Slides are reviewed. GROSS DESCRIPTION Received in fixative is one container labeled with the patient's name and designated distal esophagus. The specimen consists of multiple irregular fragments of light brown soft tissue that in aggregate measure 1.0 x 0.5 x 0.1 cm. The specimen is totally submitted in one cassette. / AM:ade 10/08/2023 TC:3 CPT: 75767, 37867
[2023-10-08 08:31] VITALS: BP 114/78; PULSE 70; RESP 18; TEMP 36.4; O2SAT 100; BMI 24.4
--- NOTE | 2023-10-08 09:32 | OP.CCLET_ITS ---
10/08/2023 Andrew Mckeon [address] [place], [place] [id number] Re : Upper GI endoscopy procedure for Noel Vicente Dear Dr. Mckeon This procedure was performed on September. My impressions and recommendations are as follows: Impressions : - Z-line irregular, 40 cm from the incisors. Biopsied. - Normal stomach. - Normal second portion of the duodenum. Recommendations : - Discharge patient to home. - Resume previous diet. - Continue present medications. - Await pathology results. My findings are described in the full procedure note, which is enclosed. If I can be of further assistance, please feel free to contact me at . Sincerely, Eric Caldera, 10/08/2023 9:31:47 AM This report has been signed electronically.
--- NOTE | 2023-10-08 09:32 | OP.EGD_ITS ---
Patient Name: Noel Vicente Procedure Date: 10/08/2023 9:15 AM Date of : 1975 Age: 48 Procedure: Upper GI endoscopy Indications: Dysphagia, Heartburn Providers: Eric Caldera DO Medicines: None Patient Profile: This is a 48 year old male. Refer to note in patient chart for documentation of history and physical. Patient has symptoms of chronic chest pain, chronic dysphagia and chronic heartburn. Complications: No immediate complications. Procedure: Pre-Anesthesia Assessment: - Prior to the procedure, a History and Physical was performed, and patient medications and allergies were reviewed. The risks and benefits of the procedure and the sedation options and risks were discussed with the patient. All questions were answered and informed consent was obtained. Patient identification and proposed procedure were verified by the physician. Mental Status Examination: normal. CV Examination: normal. Prophylactic Antibiotics: The patient does not require prophylactic antibiotics. Prior Anticoagulants: The patient has taken no anticoagulant or antiplatelet agents. After reviewing the risks and benefits, the patient was deemed in satisfactory condition to undergo the procedure. The anesthesia plan was to use no sedation or anesthesia. Immediately prior to administration of medications, the patient was re-assessed for adequacy to receive sedatives. The heart rate, respiratory rate, oxygen saturations, blood pressure, adequacy of pulmonary ventilation, and response to care were monitored throughout the procedure. The physical status of the patient was re-assessed after the procedure. After obtaining informed consent, the endoscope was passed under direct vision. Throughout the procedure, the patient's blood pressure, pulse, and oxygen saturations were monitored continuously. The Endoscope was introduced through the mouth, and advanced to the second part of duodenum. The upper GI endoscopy was accomplished without difficulty. The patient tolerated the procedure well. Scope In: 9:23:11 AM Scope Out: 9:26:22 AM Total Procedure Duration Time 0 hours 3 minutes 11 seconds Findings: The Z-line was irregular and was found 40 cm from the incisors. Biopsies were taken with a cold forceps for histology. Verification of patient identification for the specimen was done. Estimated blood loss was minimal. The entire examined stomach was normal. The second portion of the duodenum was normal. Impression: - Z-line irregular, 40 cm from the incisors. Biopsied. - Normal stomach. - Normal second portion of the duodenum. Recommendation: - Discharge patient to home. - Resume previous diet. - Continue present medications. - Await pathology results. Procedure Code(s): --- Professional --- 70158, Esophagogastroduodenoscopy, flexible, transoral; with biopsy, single or multiple CPT copyright 2021 [employer]. All rights reserved. The codes documented in this report are preliminary and upon telephone claims representative review may be revised to meet current compliance requirements. Eric Caldera DO 10/08/2023 9:31:47 AM This report has been signed electronically. Number of Addenda: 0 Note Initiated On: 10/08/2023 9:15 AM
== END 2023-10-08 09:40 | disposition home or self-care (01) ==
LOC: EN 08:11 → AC 08:12
PROVIDERS: PCP Internal Medicine Cardiovascular Disease; Referring Provider Internal Medicine Gastroenterology; Visit Provider Internal Medicine Gastroenterology
PROC: 0DJ08ZZ Inspection of Upper Intestinal Tract, Via Natural or Artificial Opening Endoscopic (ICD-10-PCS; CPT 43235; principal; 2023-10-08 08:25)
DX: K21.00 Gastro-esophageal reflux disease with esophagitis, without bleeding (principal); R13.10 Dysphagia, unspecified; E03.9 Hypothyroidism, unspecified; E78.00 Pure hypercholesterolemia, unspecified; R07.9 Chest pain, unspecified; R12 Heartburn; Z79.82 Long term (current) use of aspirin; Z79.899 Other long term (current) drug therapy
CPT/HCPCS: 43239; 88305; 88313; J7120; J2405

== ENCOUNTER 2023-12-04 14:00 | Outpatient (RCR) | payer OTHER, SELFPAY ==
--- NOTE | 2023-11-12 14:22 | HP.PTEVAL_ITS ---
Patient's Visit Information Visit Information Visit Information: DECLAN AMEZCUA is a 48 year old M referred to Physical Therapy by Dr. Devon Shannon DPM with a diagnosis of Right Achilles tendinitis and left foot neuroma. Date of Evaluation: 11/12/23 Physical Therapist: Aldo Azevedo Visit Plan Frequency: 2x /Week Duration: 6 Weeks Plan: Continue with calf stretches, eccentric calf strengthening, ankle strengthening, and balance exercises. Use manual therapy, modalities, and possible shockwave. Subjective Subjective: Pt. is a 48 y.o. male who has been having right achilles pain for about two months and reports that he was playing cricket and noticed increased pain. Pt. notes that it has been getting better. He also has left foot pain which has been going on for a little bit longer but reports that this is also getting better as well. He had x-ray of his right ankle/foot which was negative and left foot which was negative as well. He will occasionally get some shooting pain in his left foot. Pt. has difficulty with getting up to walk after sitting for long periods of time, walking barefoot, walking the dog, running, jumping, and playing cricket. 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 His goal with physical therapy is to get back to playing cricket and able to run with no pain. He has had previous physical therapy for his left knee. He denies any pain currently, at worst 2/10 and describes the pain as achy. His PMH includes nasal surgery and left leg vein surgery. His hobbies include playing cricket and tennis. Objective Objective: Palpation- No tenderness to palpation Left ankle AROM DF 12 degrees, PF 40 degrees, Inv 30 degrees, Eversion 10 degrees Right ankle AROM DF 15 degrees, PF 40 degrees, Inv 32 degrees, Eversion 8 degrees Left LE strength hip flexion 5/5, abduction 5/5, adduction 5/5, extension 5/5, knee flexion 5/5, knee extension 5/5, ankle DF 5/5, PF 5/5, Inversion 5/5, Eversion 5/5 Right LE strength hip flexion 5/5, abduction 5/5, adduction 5/5, extension 5/5, knee flexion 5/5, knee extension 5/5, ankle DF 5/5, PF 4+/5, Inversion 5/5, Eversion 5/5 Tandem stance right 30 secs, left 30 secs SLS right 30 secs, left 30 secs Special tests- Anterior drawer [-], Talar tilt [-], Metatarsal squeeze [-], Iniguez's test [-] Gait- Pt. ambulates with no gait deviations. Balance/Special Test Scores Lower Extremity Functional Score: 74 Goals Goal 1:: Pt. will be able to walk his dog unlimited distance with no right achilles pain. Goal Time Frame: 4-6 Weeks Goal 2:: Pt. will be able to jog with no pain. Goal Time Frame: 4-6 Weeks Goal 3:: Pt. will be able to return to playing cricket ball and tennis with no pain. Goal Time Frame: 4-6 Weeks Goal 4:: Pt. will improve LEFS to less than 5% disability in order to improve ADL's and IADL's. Goal Time Frame: 4-6 Weeks Rehabilitation Potential Physical Therapy Diagnosis: Decreased right ankle strength, difficulty walking, and pain. Pt. presents at this time with right Achilles tendinitis and left foot neuroma. Rehabilitation Potential: Excellent Anticipated Interventions Patient/Client Instruction: Educate patient on: Condition and Benefits of Fitness Program For the Purpose of:: To decrease pain, To increase ROM, To improve ability to perform ADL's, To improve performance and independence with ADL's, To improve ability of physical actions for home/community/work/leisure, To assume or resume ADL's and To improve tolerance to ADL's Therapeutic Exercise to Include: Strength training, Balance training and Gait and locomotor training Comment: Continue with calf stretches, eccentric calf strengthening, ankle strengthening, and balance exercises. For the Purpose of:: To improve ability to perform ADL's, To improve performance and independence with ADL's, To improve ability of physical actions for ho me/community/work/leisure, To improve balance, To assume or resume ADL's and To improve tolerance to ADL's Manual Therapy Techniques to Include: Mobilization, Soft tissue mobilization and Other Comment: [place] For the Purpose of:: To decrease pain, To decrease swelling/inflammation, To improve ability to perform ADL's, To improve performance and independence with ADL's, To improve ability of physical actions for home/community/work/leisure, To assume or resume ADL's and To improve tolerance to ADL's TENS: Yes IF ES: Yes Cryotherapy (ice pack, ice massage): Yes Thermo therapy (hot pack): Yes Ultrasound (thermal/non thermal): Yes Comment: Shockwave For the Purpose of:: To decrease pain, To decrease swelling/inflammation, To improve ability to perform ADL's, To improve performance and independence with ADL's, To improve ability of physical actions for home/community/work/leisure, To assume or resume ADL's and To improve tolerance to ADL's Text: Thank you for the opportunity to evaluate your patient. For Medicare and Medicare HMO plans, please review the plan of care and approve it. It will need to be FAXED BACK to us at [phone] for Medicare purposes. For Medicare only, by signing this I certify the plan of care. Please let me know if there are questions or concerns regarding this plan of care. Physician Signature: Date:
--- NOTE | 2023-12-04 15:06 | HP.PTREVAL ---
Re-Evaluation Intro: Dr. Devon Shannon, DPM, It has been my pleasure to treat DECLAN AMEZCUA over the last 5 visits for Right Achilles tendinitis and left foot neuroma. Please see the progress note below for an update on the physical therapy plan of care! Subjective Subjective: Not much pain, mostly stiff. Doing what he needs to do with normal activities but aa little stiff upon arising if he sits too long, gone with stretching. Objective Objective/Function: Still tight in gastroc at 2 degree DF with knee straight. Slight tenderness belly of R achilles. Walking normal and felt really good after trial of shockwave. Plan Plan Plan: hold chart. pt to trial continuation of home exercises and call within two weeks for d/c or paid shockwave treatment depending on his ocnintued progress at home Balance/Gait/Functional tests Balance/Special Test Scores Lower Extremity Functional Score: 75 Goals Goals Goal 1:: Pt. will be able to walk his dog unlimited distance with no right achilles pain. Goal Time Frame: 4-6 Weeks Goal Progress: Goal Met Goal 2:: Pt. will be able to jog with no pain. Goal Time Frame: 4-6 Weeks Goal Progress: Progressing Goal 3:: Pt. will be able to return to playing cricket ball and tennis with no pain. Goal Time Frame: 4-6 Weeks Goal Progress: Progressing Goal 4:: Pt. will improve LEFS to less than 5% disability in order to improve ADL's and IADL's. Goal Time Frame: 4-6 Weeks Goal Progress: progress...6.25% Anticipated Interventions Anticipated Interventions Patient/Client Instruction: Educate patient on: Condition and Benefits of Fitness Program For the Purpose of:: To decrease pain, To increase ROM, To improve ability to perform ADL's, To improve performance and independence with ADL's, To improve ability of physical actions for home/community/work/leisure, To assume or resume ADL's and To improve tolerance to ADL's Therapeutic Exercise to Include: Strength training, Balance training and Gait and locomotor training Comment: Continue with calf stretches, eccentric calf strengthening, ankle strengthening, and balance exercises. For the Purpose of:: To improve ability to perform ADL's, To improve performance and independence with ADL's, To improve ability of physical actions for home/community/work/leisure, To improve balance, To assume or resume ADL's and To improve tolerance to ADL's Manual Therapy Techniques to Include: Mobilization, Soft tissue mobilization and Other Comment: [place] For the Purpose of:: To decrease pain, To decrease swelling/inflammation, To improve ability to perform ADL's, To improve performance and independence with ADL's, To improve ability of physical actions for home/community/work/leisure, To assume or resume ADL's and To improve tolerance to ADL's TENS: Yes IF ES: Yes Cryotherapy (ice pack, ice massage): Yes Thermo therapy (hot pack): Yes Ultrasound (thermal/non thermal): Yes Comment: Shockwave For the Purpose of:: To decrease pain, To decrease swelling/inflammation, To improve ability to perform ADL's, To improve performance and independence with ADL's, To improve ability of physical actions for home/community/work/leisure, To assume or resume ADL's and To improve tolerance to ADL's Re-Evaluation Ending Re-evaluation ending: Please do not hesitate to contact me at [phone] by phone or if you have questions or concerns regarding this new plan of care! Sincerely, Vladimir Rizo, DPT, OCS, CSCS
--- NOTE | 2024-02-12 14:26 | HP.PTDCSUM ---
Discharge Summary D/C summary: It has been my pleasure to treat DECLAN AMEZCUA referred by Dr. Devon Shannon DPM, with the diagnosis of Right Achilles tendinitis and left foot neuroma for a total of 5 visit(s). Discharge Date: Please see the following information for a summary of their discharge status. Subjective Subjective: Not much pain, mostly stiff. Doing what he needs to do with normal activities but aa little stiff upon arising if he sits too long, gone with stretching. Pain R Ankle: Pain Intensity (Out of 10): 1 Overall Improvement % Improvement: 80 Objective Objective/Function: Still tight in gastroc at 2 degree DF with knee straight. Slight tenderness belly of R achilles. Walking normal and felt really good after trial of shockwave. Goals Goal 1:: Pt. will be able to walk his dog unlimited distance with no right achilles pain. Goal Progress: Goal Met Goal 2:: Pt. will be able to jog with no pain. Goal Progress: Progressing Goal 3:: Pt. will be able to return to playing cricket ball and tennis with no pain. Goal Progress: Progressing Goal 4:: Pt. will improve LEFS to less than 5% disability in order to improve ADL's and IADL's. Goal Progress: progress...6.25% Plan Plan: hold chart. pt to trial continuation of home exercises and call within two weeks for d/c or paid shockwave treatment depending on his ocnintued progress at home D/C Information d/c sentence: If there are questions or concerns regarding this patient's physical therapy, please feel free to call me at [phone]. Thank you for the referral of this patient. Sincerely, Vladimir Rizo, DPT, OCS, CSCS Balance/Gait/Functional tests Balance/Special Test Scores Lower Extremity Functional Score: 75 Improvement % Improvement: 80
== END 2023-12-04 19:00 | disposition home or self-care (01) ==
LOC: PT 14:00
PROVIDERS: PCP Internal Medicine Cardiovascular Disease; Referring Provider Podiatrist; Visit Provider Podiatrist
DX: M76.61 Achilles tendinitis, right leg (principal); G57.62 Lesion of plantar nerve, left lower limb
CPT/HCPCS: 97110; 97161; 97164

== ENCOUNTER → 2025-09-27 | Outpatient (CLI) | payer OTHER, SELFPAY ==
--- NOTE | 2025-09-27 14:35 | NEURO_ITS ---
NCS and/or EMG Patient Report
--- NOTE | 2025-09-27 14:35 | NEURO ---
NCS and/or EMG Patient Report Ordering Doctor: Cheikh Spicer DATE OF SERVICE: 09/27/25 Noel presents for electrodiagnostic testing of the right upper limb. He reports tingling in the forearm and hand. Electrodiagnostic findings: Right median motor nerve demonstrates normal distal latency, amplitude and conduction velocity. Right ulnar motor response is within normal limits, including conduction across the elbow. Normal median and ulnar F?waves. Sensory responses are within normal limits. Needle EMG testing was performed in the right upper limb. 1+ fibrillations were noted in the right triceps, right flexor carpi ulnaris and right lower cervical paraspinals. Motor unit action potentials are of normal amplitude and duration. Electrodiagnostic impression: This is an abnormal study in the right upper limb. 1. Electrodiagnostic findings suggestive of an acute right C7 radiculopathy. Consider correlation with cervical spine MRI to evaluate for possible disc herniation. 2 No electrodiagnostic evidence is noted for peripheral neuropathy, including carpal tunnel or cubital tunnel syndrome Multi Select Codes Neurology Neurology Interp Codes: 54099-49 Musc test done w/n test comp (interp) and 28239-02 Nrv cndj test 7-8 studies (interp)
== END | disposition home or self-care (01) ==
PROVIDERS: Referring Provider Orthopaedic Surgery Sports Medicine; Visit Provider Orthopaedic Surgery Sports Medicine
DX: G56.20 Lesion of ulnar nerve, unspecified upper limb (principal)
CPT/HCPCS: 95886; 95910

== ENCOUNTER → 2025-10-03 | Outpatient (CLI) | payer OTHER, SELFPAY ==
--- NOTE | 2025-10-03 11:12 | MRI_ITS ---
PROCEDURE: SPINE CERVICAL (ROUTINE) 10/03/2025 REASON FOR EXAM: C7 RADIC ON NCS TECHNIQUE: Procedure Code: MRISPC Modality: MR Procedure: SPINE CERVICAL (ROUTINE) Multiplanar and multisequence images were obtained without IV contrast administration. COMPARISON: None FINDINGS: Vertebral body height is maintained. There is loss of the lordosis. There is grade 1 retrolisthesis at C4-5, 0.2 cm. There is grade 1 retrolisthesis at C5-6, 0.2 cm. Vertebral body marrow signal is normal. The intervertebral disc signal shows desiccation. The facets are aligned. C2-C3: There is no significant disc protrusion. There is no lateral recess or foraminal stenosis. There is no central canal stenosis. C3-C4: There is moderate central disc protrusion which extends beyond the C3 endplate. There is no significant lateral recess or foraminal narrowing. There is mild central canal stenosis. C4-C5: There is moderate central and left paracentral disc protrusion. There is mild left lateral recess effacement. There is no significant foraminal narrowing. There is mild central canal stenosis. C5-C6: There is mild central and right and left paracentral disc protrusion. There is mild left lateral recess effacement. There is mild left foraminal narrowing secondary to disc and osteophyte protrusion. There is mild central canal stenosis C6-C7: There is moderate central, mild right and moderate left paracentral disc and osteophyte protrusion. There is moderate left lateral recess stenosis. There is moderate left foraminal narrowing secondary to disc and osteophyte protrusion. There is moderate central canal stenosis. C7-T1: There is mild central disc protrusion with increased signal in the margin of the disc consistent with a fissure. There is no significant lateral recess or foraminal narrowing. There is no central canal stenosis. The visualized cord shows normal signal characteristics. Adjacent soft tissues are grossly unremarkable. MRI/Spine Cervical (Routine) IMPRESSION: There is loss of the lordosis. There is grade 1 retrolisthesis at C4-5, 0.2 cm. There is grade 1 retrolisthesi s at C5-6, 0.2 cm. There is mild central canal stenosis at C3-4, C4-5, C 5-6, and moderate central canal stenosis at C6-7, with lateral recess and foraminal narrowing. Reading Location: [facility]
== END | disposition home or self-care (01) ==
PROVIDERS: Referring Provider Orthopaedic Surgery Sports Medicine; Visit Provider Orthopaedic Surgery Sports Medicine
DX: M54.12 Radiculopathy, cervical region (principal)
CPT/HCPCS: 72141

== ENCOUNTER 2025-11-14 14:30 | Outpatient (RCR) | payer OTHER, SELFPAY ==
--- NOTE | 2025-10-12 13:19 | HP.PTEVAL_ITS ---
Patient's Visit Information Visit Information Visit Information: DECLAN AMEZCUA is a 50 year old M referred to Physical Therapy by Dr. Cheikh Spicer MD with a diagnosis of CERVICAL RADICULOPATHY. Date of Evaluation: 10/12/25 Physical Therapist: Thad Millard, PT, Cert MDT, OCS Visit Plan Frequency: 2x /Week Duration: 4 Weeks Plan: PT INTERVENTIONS BHARATI EX'S ,POSTURAL EX'S ,STRENGTHENING ,ICTX 15-20# PULL X15 MINS 40SECON/10SEC OFF ,MANUAL THERAPY (CERVICAL TRACTION) AND ACTIVITY MODIFICATION/POSTURE Subjective Subjective: This 50 y/o male presents to physical therapy with cervical radiculopathy. Patient has symptoms intermittent for 7 years ,slowly symptoms worse in and arm right. Seen DR Spicer recommended PT and MRI showed C4-C5: There is moderate central and left paracentral disc protrusion. There is mild left lateral recess effacement. There is no significant foraminal narrowing. There is mild central canal stenosis.5-C6: There is mild central and right and left paracentral disc protrusion. There is mild left lateral recess effacement.There is mild left foraminal narrowing secondary to disc and osteophyte protrusion. There is mild central canal stenosis.C6-C7: There is moderate central, mild right and moderate left paracentral disc and osteophyte protrusion. There is moderate left lateral recess stenosis. There is moderate left foraminal narrowing secondary to disc and osteophyte protrusion. There is moderate central canal stenosis.C7-T1: There is mild central disc protrusion with increased signal in the margin of the disc consistent with a fissure. There is no significant lateral recess or foraminal narrowing. There is no central canal stenosis. Pain located cervical lateral forearm and bicep region right. Aggravating factors evening thinks cumulative affects with job demand. Alleviating factors nothing. Patient tingling in forearm dorsal. Not dropping anything . Noticed some weakness. Denies dizziness/nausea/MED[place]. Symptoms don't affects sleeping. EMG test showed electrodiagnostic findings suggestive of an acute right C7 radiculopathy. No pain management.No recent trauma /accident. No other tx. Patient noticed atrophy right arm. Plans to have consult with DR Ovalle . Patient condition affects QOL and function/job symptoms. 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 Pain Left: Pain Intensity (Out of 10): 0 Pain Intensity Range: 0 Bilateral Neck: Pain Intensity (Out of 10): 2 Pain Intensity Range: 4 and 5 Objective Objective: POSTURE : rounded shoulders head forward PALATION: unremarkable NEURO: denies paresthesia/tingling ,reflexes C5-6-7 1/3 RIGHT ,2/3 LEFT BUE: AROM WFL MMT: BUE grossly 4/5 ,shoulders 4/5 [employer] STRENGTH ( dynamometer): right 120 # ,left 100# CERVICAL ROM: flexion WFL ,extension/rotation,extension 25% loss Special Tests C/S Radiculapathy - Left Upper limb tension test: Negative C/S Radiculapathy - Right Upper limb tension test: Negative C/S Radiculapathy - Left Spurlings: Negative C/S Radiculapathy - Right Spurlings: Negative C/S Radiculapathy - Left Cervical distraction: Negative C/S Radiculapathy - Right Cervical distraction: Negative C/S Radiculapathy - Left Relief test: Negative C/S Radiculapathy - Right Relief test: Negative [place]: Negative Vertebral Artery Test: Negative Alar Ligament Test: Negative Balance/Special Test Scores Oswestry Neck Score: 8 Goals Goal 1:: Patient to be I with HEP for cervical spine Goal Time Frame: 4-6 Weeks Goal 2:: Patient to improve cervical ROM for function of recovery for job demands w/o recurrent symptoms Goal Time Frame: 4-6 Weeks Goal 3:: Patient to improve neck oswestry score by 5 points to improve QOL Goal Time Frame: 4-6 Weeks Goal 4:: Patient to demonstrate 75% improvement with less pain and imprved function and job deamds Goal Time Frame: 4-6 Weeks Rehabilitation Potential Physical Therapy Diagnosis: Patient has cervical radiculopathy with derangement with protruding discs and and stenosis with pain cervical wosre with postioning better with posture correction benefit from skilled PT Rehabilitation Potential: Fair Anticipated Interventions Patient/Client Instruction: Educate patient on: Condition and Plan of Care For the Purpose of:: To decrease pain, To increase ROM, To improve muscle performance and motor function, To improve ability to perform ADL's, To increase tolerance to activity/condition/position, To improve ability of physical actions for home/community/work/leisure, To improve health of tissue, To decrease soft tissue restriction and To increase flexibility/ROM Therapeutic Exercise to Include: Strength training, Postural training, Flexibilty training, Active ROM, Bharati Exercises and Scapular Strength/Stabilization For the Purpose of:: To decrease pain, To increase ROM, To improve muscle performance and motor function, To increase tolerance to activity/condition/position, To improve ability of physical actions for home/community/work/leisure, To improve health of tissue, To decrease soft tissue restriction, To increase flexibility/ROM and To improve tolerance to ADL's Manual Therapy Techniques to Include: Mobilization and Soft tissue mobilization Comment: CERVICAL For the Purpose of:: To decrease pain, To increase ROM, To improve nutrient delivery to tissue, To increase oxygenation perfusion, To improve health of tissue and To decrease soft tissue restriction TENS: Yes IF ES: Yes Cryotherapy (ice pack, ice massage): Yes Thermo therapy (hot pack): Yes Ultrasound (thermal/non thermal): Yes Intermittent cervical traction: Yes For the Purpose of:: To decrease pain, To increase ROM, To improve nutrient delivery to tissue, To increase oxygenation perfusion, To improve health of tissue and To decrease soft tissue restriction Text: Thank you for the opportunity to evaluate your patient. For Medicare and Medicare HMO plans, please review the plan of care and approve it. It will need to be FAXED BACK to us at [phone] for Medicare purposes. For Medicare only, by signing this I certify the plan of care. Please let me know if there are questions or concerns regarding this plan of care. Physician Signature: Date:
--- NOTE | 2025-11-14 15:03 | HP.PTDCSUM_ITS ---
Discharge Summary D/C summary: It has been my pleasure to treat DECLAN AMEZCUA referred by Dr. Cheikh Spicer MD, with the diagnosis of CERVICAL RADICULOPATHY for a total of 9 visit(s). Discharge Date: 11/14/25 Please see the following information for a summary of their discharge status. 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 STRENGTH ( dynamometer): right 120 # ,left 100# CERVICAL ROM: flexion WFL ,extension/rotation,extension WFL Goals Goal 1:: Patient to be I with HEP for cervical spine Goal Progress: Goal Met Goal 2:: Patient to improve cervical ROM for function of recovery for job demands w/o recurrent symptoms Goal Progress: Goal Met Goal 3:: Patient to improve neck oswestry score by 5 points to improve QOL Goal Progress: Goal Met Goal 4:: Patient to demonstrate 75% improvement with less pain and imprved function and job deamds Goal Progress: Goal Met Plan Plan: D/C D/C Information d/c sentence: If there are questions or concerns regarding this patient's physical therapy, please feel free to call me at [phone]. Thank you for the referral of this patient. Sincerely, Thad Millard, PT, Cert MDT, OCS Balance/Gait/Functional tests Balance/Special Test Scores Oswestry Neck Score: 0 Improvement % Improvement: 90
== END 2025-11-14 19:00 | disposition home or self-care (01) ==
LOC: PT 14:30
PROVIDERS: Referring Provider Orthopaedic Surgery Sports Medicine; Visit Provider Orthopaedic Surgery Sports Medicine
DX: M54.12 Radiculopathy, cervical region (principal)
CPT/HCPCS: 97012; 97110; 97162